=== PATIENT | male | born 1940 | race Caucasian/White ===

== ENCOUNTER 2016-10-01 14:11 | Emergency (ER) | payer MEDICARE, OTHER ==
[2016-10-01 15:02] VITALS: BP 108/67
--- NOTE | 2016-10-01 15:22 | UC ---
Throat Pain/Nasal Marcel HPI - HPI Summary HPI Summary: Patient has had some nasal congestion and maxillary sinus pressure. some lightheadedness as well as decreased hearing. - History of Current Complaint Chief Complaint: UCGeneralIllness Stated Complaint: DIZZY,CONGESTION,COUGH Time Seen by Provider: 10/01/16 15:11 Hx Obtained From: Patient Onset/Duration: Sudden Onset, Lasting Days Severity: Moderate Cough: Nonproductive Associated Signs & Symptoms: Positive: Dysphagia, Wheezing, Sinus Discomfort, Nasal Discharge - Epiglottits Risk Factors Epiglottis Risk Factors: Negative - Allergies/Home Medications Allergies/Adverse Reactions: Allergies Allergy/AdvReac Type Severity Reaction Status Date / Time Ibuprofen AdvReac Abdominal Verified 10/01/16 15:07 Pain Metformin AdvReac Abdominal Verified 10/01/16 15:07 Pain Home Medications: Home Medications Liraglutide [Victoza] 1.2 ml SC DAILY 10/01/16 [History Confirmed 10/01/16] PMH/Surg Hx/FS Hx/Imm Hx Previously Healthy: Yes Endocrine History Of: Reports: Diabetes Cardiovascular History Of: Reports: Cardiac Disorders, Hypertension, Pacemaker/ ICD, Myocardial Infarction - Surgical History Surgical History: Yes Surgery Procedure, Year, and Place: PACE MAKER - Family History Known Family History: Positive: Hypertension - Social History Alcohol Use: Rare Substance Use Type: None Smoking Status (MU): Former Smoker When Did the Patient Quit Smoking/Using Tobacco: 40 YRS AGO - Immunization History Most Recent Influenza Vaccination: 2013 Most Recent Tetanus Shot: unknown Most Recent Pneumonia Vaccination: within last 5 years Review of Systems Constitutional: Negative Skin: Negative Eyes: Negative ENT: Sore Throat, Ear Ache, Nasal Discharge Respiratory: Cough Cardiovascular: Negative Gastrointestinal: Negative Genitourinary: Negative Motor: Negative Neurovascular: Negative Musculoskeletal: Negative Neurological: Negative Psychological: Negative All Other Systems Reviewed And Are Negative: Yes Physical Exam Triage Information Reviewed: Yes Appearance: Well-Appearing, Well-Nourished, Pain Distress Vital Signs: Initial Vital Signs Temp 98.4 F 10/01/16 14:54 Pulse 90 10/01/16 14:54 Resp 16 10/01/16 14:54 BP 108/67 10/01/16 14:54 Pulse Ox 94 10/01/16 14:54 Vital Signs Reviewed: Yes Eye Exam: Normal Eyes: Positive: Conjunctiva Clear ENT: Positive: Pharyngeal erythema - petechiae, Tonsillar swelling, Other: - right serumen impaction, left TM pearly philip, Dental Exam: Normal Neck exam: Normal Neck: Positive: Supple, Nontender, No Lymphadenopathy Respiratory Exam: Normal Respiratory: Positive: Chest non-tender, Lungs clear, Normal breath sounds Cardiovascular Exam: Normal Cardiovascular: Positive: RRR, No Murmur, Pulses Normal Abdominal Exam: Normal Abdomen Description: Positive: Nontender, No Organomegaly, Soft Bowel Sounds: Positive: Present Musculoskeletal Exam: Normal Musculoskeletal: Positive: Strength Intact, ROM Intact, No Edema Neurological Exam: Normal Neurological: Positive: Alert, Muscle Tone Normal Psychological Exam: Normal Skin Exam: Normal Throat Pain/Nasal Course/Dx - Course Course Of Treatment: hx obtained, exam performed, meds reviewed, rapid strep obtained, right ear irrigation performed with good results. ear is red, serous otiti s noted. prednisone prescribed. encouraged follow up with PCP if symptoms persist. - Differential Dx/Diagnosis Differential Diagnosis/HQI/PQRI: Influenza, Laryngitis, Otitis Media, Pharyngitis, Sinusitis, Tonsillitis Provider Diagnoses: Serous otitis media. maxillary sinus pressure. lightheadedness Discharge - Discharge Plan Condition: Stable Disposition: HOME Patient Education Materials: Serous Otitis Media (ED)
== END 2016-10-01 15:55 | disposition home or self-care (01) ==
LOC: UCCORT 14:11
DX: H65.90 Unspecified nonsuppurative otitis media, unspecified ear (principal); J34.89 Other specified disorders of nose and nasal sinuses; R42 Dizziness and giddiness; H61.21 Impacted cerumen, right ear; Z88.9 Allergy status to unspecified drugs, medicaments and biological substances; Z88.8 Allergy status to other drugs, medicaments and biological substances; E11.9 Type 2 diabetes mellitus without complications; I21.3 ST elevation (STEMI) myocardial infarction of unspecified site; I10 Essential (primary) hypertension; Z95.0 Presence of cardiac pacemaker; Z87.891 Personal history of nicotine dependence
CPT/HCPCS: 87651; 99213; G0463